=== PATIENT | female | born 1985 | race Hispanic/Latino ===

== ENCOUNTER 2021-04-01 22:48 | Emergency (ER) | payer OTHER ==
[~2021-04-01] VITALS: Ht 152.4 cm; Wt 68.0 kg
[2021-04-01 23:46] LABS: APPEARANCE,URINE CLEAR (CLEAR); BILIRUBIN,URINE Negative (NEGATIVE); COLOR,URINE Yellow (YELLOW); GLUCOSE, URINE (UA) Negative (NEGATIVE); KETONES,URINE Negative (NEGATIVE); LEUKOCYTE ESTERASE ,URINE Trace (NEGATIVE); NITRATE,URINE Negative (NEGATIVE); OCCULT BLOOD,URINE Small (NEGATIVE); PH,URINE 6.5 (5.0-8.0); PROTEIN,URINE Negative (NEGATIVE)
[2021-04-01 23:56] LABS: BACTERIA,URINE Rare /HPF (None Seen)
[2021-04-02 00:59] VITALS: BP 102/52
== END 2021-04-02 01:11 | disposition home or self-care (01) ==
LOC: EDH 22:48
DX: R10.2 Pelvic and perineal pain (principal); Q52.4 Other congenital malformations of vagina
CPT/HCPCS: 81001